=== PATIENT | male | born 1955 | race Caucasian/White ===

== ENCOUNTER → 2016-10-04 | Outpatient (CLI) | payer BC ==
--- NOTE | 2016-10-04 13:11 | RADRPT ---
PROCEDURE: XR pelvis / bilateral hips. CLINICAL INDICATION: Hip pain TECHNIQUE: AP pelvis/AP and lateral views of the right and left hip performed COMPARISON: No prior studies are available for comparison. FINDINGS: There is moderate to severe bilateral hip osteoarthrosis. This is associated with joint space narrow ing, subchondral sclerosis , subchondral cyst formation and osteophytosis. There is normal minerali zation. No fractures or osseous lesions are identified. The soft tissues are unremarkable. IMPRESSION: Moderate to severe bilateral hip osteoarthrosis. RPTAT: HGDB .Cristian Farrell MD, MD Date Time Electronically viewed and signed by .Cristian Farrell MD, on 10/04/2016 13:10 .B/
== END | disposition home or self-care (01) ==
LOC: HKI 10:02
PROVIDERS: ATTEND Orthopaedic Surgery
DX: M25.551 Pain in right hip (principal); M25.552 Pain in left hip; M16.0 Bilateral primary osteoarthritis of hip
CPT/HCPCS: 73523; G0463

== ENCOUNTER → 2016-12-04 | Outpatient (CLI) | payer BC | END | disposition home or self-care (01) | LOC: HKI 09:21 | PROVIDERS: ATTEND Orthopaedic Surgery | DX: M25.551 Pain in right hip (principal); M16.11 Unilateral primary osteoarthritis, right hip | CPT/HCPCS: G0463 ==

== ENCOUNTER 2016-12-12 05:30 | Inpatient (IN) | payer BC ==
[2016-12-08 17:25] VITALS: BMI 37.3
[~2016-12-12] VITALS: Ht 190.5 cm; Wt 142.0 kg
[2016-12-12] VITALS (23 sets, daily range): BP systolic 97–156; BP diastolic 57–86; PULSE 64–86; RESP 11–19; Ht 190.5 cm; Wt 142.0 kg
[2016-12-12] MEDS ORDERED: PAIN COCKTAIL-CEFUROXIME IRR ONE ×7 (06:00)
[2016-12-12] MEDS ORDERED: PREGABALIN 300 MG PO X1 PO ONE (06:00)
[2016-12-12] MEDS ORDERED: oxyCODONE (CR) 10 MG TAB [oxyCONTIN] X1 DOSE PO ONE (06:00)
[2016-12-12] MEDS ORDERED: CEFAZOLIN 2GM/50 ML (PMX) 50 ML X1 BEFORE INCISION IVPB ONE (06:00)
[2016-12-12] MEDS ORDERED: traMADOL 50 MG TAB X 1 DOSE PO ONE (06:00)
[2016-12-12] MEDS ORDERED: BUPIVACAINE LIPOSOME/PF 266 MG/20 ML VIAL INFIL ONE (06:00)
[2016-12-12] MEDS ORDERED: SOD CHLORIDE 0.9% IV ONE (06:00)
[2016-12-12] MEDS ORDERED: TRANEXAMIC ACID IV ONE (06:00)
[2016-12-12] MEDS ORDERED: CELECOXIB 400 MG PO X1 DOSE PO ONE (06:00)
[2016-12-12] MEDS: LACTATED RINGER'S 1,000 ML IV SCH ×5 (06:00→22:11)
[2016-12-12] MEDS ORDERED: GABA400C PO (06:54)
[2016-12-12] MEDS ORDERED: ARIP5TAB7 PO (06:56)
[2016-12-12] MEDS ORDERED: IBUP100T46 PO (06:56)
[2016-12-12] MEDS ORDERED: CEFAZOLIN 1 GM INJ ONE ×2 (07:00→07:18)
[2016-12-12] MEDS ORDERED: LIDOCAINE 2% (SDV) 5 ML INJ ONE (07:00)
[2016-12-12] MEDS ORDERED: ANDROGEL (07:02)
[2016-12-12] MEDS ORDERED: MARIJUANA (07:02)
[2016-12-12] MEDS ORDERED: TRAM50TA2 PO (07:02)
[2016-12-12] MEDS ORDERED: DULO60CA6 PO (07:02)
[2016-12-12] MEDS ORDERED: VIAGRA (07:02)
[2016-12-12] MEDS ORDERED: CLON2TAB22 PO (07:02)
[2016-12-12] MEDS ORDERED: VANCOMYCIN 1 GM INJ ONE (07:03)
[2016-12-12] MEDS ORDERED: POLYMYXIN B 500000 UNIT INJ ONE (07:03)
--- NOTE | 2016-12-12 07:14 | HPN ---
Date/Time of Note Date/Time of Note DATE: 12/12/16 TIME: 07:12 Interval H&P Admission Note Pt. seen H&P reviewed: Systems changes noted below H&P on 12/07/[address] Wale Townsend reviewed. Patient denies any prior history of a DVT and/or PE. He has never been on any anticoagulants. The H&P also states he is undergoing a left hip replacement but it is actually his right hip which is being replaced. This was confirmed with the patient and the consent reflects we will be replacing his right hip today. LYN MICHELLE MD December 12, 2016 07:14
[2016-12-12] MEDS ORDERED: NEOSTIGMINE 3 MG/3 ML SYRINGE ONE (07:18)
[2016-12-12] MEDS ORDERED: PROPOFOL 20 ML ONE (07:18)
[2016-12-12] MEDS ORDERED: FENTAnyl 50 MCG/ML VIAL ONE (07:18)
[2016-12-12] MEDS ORDERED: GLYCOPYRROLATE 0.4 MG INJ ONE (07:18)
[2016-12-12] MEDS ORDERED: MIDAZOLAM 1 MG/ML 2 ML INJ ONE (07:18)
[2016-12-12] MEDS ORDERED: ONDANSETRON 4 MG INJ ONE (07:18)
[2016-12-12] MEDS ORDERED: ROCURONIUM 50 MG INJ ONE (07:18)
[2016-12-12] MEDS ORDERED: DEXAMETHASONE 4 MG/ML 1 ML INJ ONE (07:19)
--- NOTE | 2016-12-12 07:20 | PREOPHP ---
DATE OF ADMISSION: 12/12/2016 Don William is scheduled for surgery with Dr. Heriberto Fitzpatrick. He is to have an anterior left total hip arthroplasty. HISTORY OF PRESENT ILLNESS: Mr. William is a 61-year-old male who has pain in both hips and is cu rrently scheduled for hip replacement on the left side. He has a history of hyperlipidemia, hypogon adism. PAST SURGICAL HISTORY: Appendectomy, tonsillectomy. He has fractured his left ankle, his right wri st and 2 ribs in the past. FAMILY HISTORY: Mr. William has a father who is living and is in his late 80s. PAST MEDICAL HISTORY: Atrial fibrillation, DVT and pulmonary embolus. SOCIAL HISTORY: The patient is a nonsmoker and a light drinker who was born in [place]. ALLERGIES: NO KNOWN ALLERGIES. REVIEW OF SYSTEMS: The patient has sweats which he has had for many years, mostly after eating. Th e patient denies double vision or blurring of vision. He has some diminished hearing. He denies po st nasal drip or nosebleed. The patient some dysphagia after the first bite, but none after the fir st bite. The patient denies neck pain or neck swelling. He denies cough. He does have shortness o f breath with exertion. The patient denies chest pain or chest pressure. The patient reports some mild constipation. The patient has occasional stomach upset. GENITOURINARY: The patient dysuria, hematuria, pyuria. MUSCULOSKELETAL: As noted. Knee pain as well as neck pain. SKIN: The patient has not seen a log check scaler. Does not report skin cancer or skin rashes. NEUROLOGIC: he patient denies numbness, weakness, tingling or gait disturbance. He denies signific ant bleeding diaphysis. PHYSICAL EXAMINATION: GENERAL: The patient is a grossly obese gentleman who is 6 feet 3 inches and weighs 310 pounds. VITAL SIGNS: His BP is 120/80. HEENT: The pupils are equal and reactive to light and accommodation. Extraocular motility are full . Tympanic membranes are clear. Hearing is satisfactory. Examination of the mouth is unremarkable . NECK: Examination reveals no masses, no bruits, no supraclavicular adenopathy. CHEST: Examination reveals a regular rhythm. No gallops or murmurs are appreciated. ABDOMEN: Examination reveals a soft abdomen. Abdomen is obese and is difficult to examine. GENITAL EXAMINATION: Not performed. RECTAL EXAMINATION: Unremarkable. NEUROLOGIC EVALUATION: Cranial nerves II through XII within normal limits. The patient does have an intention tremor and a tremor with exertion. He has good judgement. He has normal proprioception, normal vibratory sense. He is oriented x3. The patient is felt to be a suitable and satisfactory candidate for surgical intervention for his os teoarthritis of his knee with a left hip arthroplasty. DR. SARA CERDA DICTATING PRE-OPERATIVE HISTORY AND PHYSICAL FOR DR. HERIBERTO FITZPATRICK. Dictated By: HERIBERTO FITZPATRICK MD EZ/NTS Conf#: [id number] DID#: [id number]
[2016-12-12] MEDS ORDERED: HEPARIN 1000 UNITS/ML 10 ML INJ ONE (08:15)
[2016-12-12] MEDS ORDERED: BACITRACIN 50000 UNITS INJ IRR ONE (08:19)
[2016-12-12] MEDS ORDERED: MIDAZOLAM 1 MG/ML 2 ML INJ IV PRN (08:30)
[2016-12-12] MEDS ORDERED: HYDROmorphONE (0.2 MG/ML) 10ML SYG IV PRN ×3 (08:30)
[2016-12-12] MEDS ORDERED: DIPHENHYDRAMINE 50 MG INJ IV PRN (08:30)
[2016-12-12] MEDS ORDERED: LABETALOL HCL 20MG INJ IV PRN (08:30)
[2016-12-12] MEDS ORDERED: FENTAnyl 50 MCG/ML VIAL IV PRN ×3 (08:30)
[2016-12-12] MEDS ORDERED: EPHEDrine SULFATE 50 MG/5 ML SYG IV PRN (08:30)
[2016-12-12] MEDS ORDERED: ONDANSETRON 4 MG INJ IV PRN ×2 (08:30→10:30)
[2016-12-12] MEDS ORDERED: TRIMETHOBENZAMIDE 100 MG/ML VIAL IM PRN (08:30)
[2016-12-12] MEDS ORDERED: MEPERIDINE 25 MG INJ IV PRN (08:30)
[2016-12-12] MEDS ORDERED: hydrALAzine 20 MG INJ IV PRN (08:30)
[2016-12-12] MEDS: SOD CHLORIDE 0.9% IVPB ONE ×3 (09:26)
[2016-12-12] MEDS: TRANEXAMIC ACID IVPB ONE ×3 (09:26)
--- NOTE | 2016-12-12 10:09 | RADRPT ---
PROCEDURE: X-ray fluoroscopy guidance CLINICAL INDICATION: RT HIP REPLACEMENT TECHNIQUE: Fluoroscopic guidance was utilized for intraoperative procedure. COMPARISON: None. FINDINGS: Fluoroscopic guidance was utilized for intraoperative procedure. 8.9 minutes of fluoroscopy time wa s utilized for the procedure. 19 x-ray images were obtained during the procedure. A right hip prosthesis is noted in near anatomic alignment. IMPRESSION: X-ray fluoroscopic guidance utilized for intraoperative procedure. Right hip prosthesis in near anatomic alignment. Please see procedure note details. RPTAT: EE Physician Deena Date Time Electronically viewed and signed by Physician Deena on 12/12/2016 10:09 RA/
--- NOTE | 2016-12-12 10:28 | PN ---
Date/Time of Note Date/Time of Note DATE: 12/12/16 TIME: 10:26 Assessment/Plan Lines/Catheters IV Catheter Type (from Nrsg): Peripheral IV Assessment/Plan Assessment/Plan Stable in PACU, s/p right anterior KATERINE -continue Ancef 3g until drain removed -pain meds as needed -ASA/SCDs for DVT prophylaxis -OOB with PT -check AM labs -monitor drain -d/c chavez in AM XR of the right hip is pending at this time Subjective 24 Hr Interval Summary Stable in PACU. Denies pain. Moving all extremities. Exam/Review of Systems Vital Signs Vitals Vital Signs Date Time Temp Pulse Resp B/P Pulse Ox O2 Delivery O2 Flow Rate FiO2 12/12/16 07:17 98.0 64 18 139/84 98 Intake and Output 12/11/16 12/11/16 12/12/16 15:00 23:00 07:00 Intake Total 113.54 ml Balance 113.54 ml Exam Free Text/Dictation Hemovac: minimal Dressing dry Incision clean, dry, and intact without redness or drainage 5/5 Quadriceps, Tibialis Anterior, EHL, Gastroc, Soleus, Peroneals Normal sensation Palpable DT/PT, CR <2 sec No distal edema HALINA NGUYỄN PA-C December 12, 2016 10:28
[2016-12-12] MEDS ORDERED: ASPIRIN (EC) 325 MG TAB PO ONE (10:30)
[2016-12-12] MEDS ORDERED: MAGNESIUM HYDROXIDE 30ML CUP PO PRN (10:30)
[2016-12-12] MEDS ORDERED: BISACODYL 10 MG SUPP PR PRN (10:30)
[2016-12-12] MEDS ORDERED: DIPHENHYDRAMINE 25 MG CAP PO PRN (10:30)
[2016-12-12] MEDS ORDERED: HYDROCODONE/APAP (5/325) TAB PO PRN (10:30)
[2016-12-12] MEDS ORDERED: HYDROmorphONE 1 MG/ML SYG IV PRN (10:30)
[2016-12-12] MEDS ORDERED: NACL 0.9% 3 ML SYG IV SCH (10:30)
[2016-12-12] MEDS ORDERED: NA PHOSPHATE/BIPHOS 133 ML ENEMA PR PRN (10:30)
--- NOTE | 2016-12-12 10:30 | OPR ---
Date/Time of Note Date/Time of Note DATE: 12/12/16 TIME: 10:29 Operative Report Free Text/Dictation Dictation # [id number] Procedure Date: December 12, 2016 Preoperative Diagnosis Right Hip OA Postoperative Diagnosis Same Operation Performed Right Anterior KATERINE Surgeon: LYN MICHELLE MD under water assistant: HALINA NGUYỄN PA-C Anesthesia: general, spinal Anesthesiologist: Juan Cooney M.D. Estimated Blood Loss: other Specimens Femoral Head Tubes/Drains Hemovac x 1 Complications: None Pt Condition Post Procedure: stable Disposition: PACU LYN MICHELLE MD December 12, 2016 10:30
[2016-12-12 10:48] LABS: HEMATOCRIT 40.8 % (42.0-52.0); HEMOGLOBIN 13.5 g/dl (14.0-18.0)
--- NOTE | 2016-12-12 10:52 | OPR ---
DATE OF OPERATION: 12/12/2016 PREOPERATIVE DIAGNOSIS: Right hip osteoarthritis. POSTOPERATIVE DIAGNOSIS: Right hip osteoarthritis. OPERATION PERFORMED: Right anterior total hip arthroplasty. SURGEON: Lyn Fitzpatrick MD BAG HANGER: SOPHIA Aldana COMPONENTS USED: DePuy size 56 mm Gription [place] cup, 56/36 neutral AltrX polyethylene liner, si ze 7 standard Actis stem, 36+1.5 ceramic head. ANESTHESIA: Spinal plus general endotracheal intubation plus periarticular injection. ANESTHESIOLOGIST: Dr. Cooney ESTIMATED BLOOD LOSS: 400 mL. INTRAVENOUS FLUIDS: Three liters of crystalloid. SPECIMENS: Femoral head. DRAINS: Hemovac x1. COMPLICATIONS: None. DISPOSITION: Patient tolerated the procedure well and was taken to the recovery room in stable [facility] ition. INDICATIONS: The patient is a 61-year-old gentleman who has had progressive worsening pain in the r ight hip with radiographic evidence of severe osteoarthritis. He has failed nonsurgical means of tr eatment to control his pain including activity modifications, pain medications and ambulatory assist devices. Despite these measures, he has had worsening pain and I felt he would benefit from a tota l hip arthroplasty through an anterior approach. The risks, benefits, and alternatives of the procedure were explained in detail to the patient. I e xplained the risks of the surgery to include, but not be limited to: bleeding and possible need for blood transfusion; infection; pain; stiffness; neurovascular injury with possible numbness, weakness , and/or paralysis anywhere from the hip down to the toes; fracture; instability; dislocation; leg l ength inequality; wear and/or loosening of the prosthesis and possible need for future revision; blo od clots; pulmonary embolism; and anesthetic complications such as heart attack, stroke, GI bleed, p neumonia, and/or . Ample time was allowed for the patient to ask questions, all of which were addressed and answered. The patient understood the risks involved and wished to proceed. Informed c onsent was signed prior to the procedure. PROCEDURE: The patient's right hip was initialed with a marking pen in the preoperative area to iden tify the correct operative site. The patient was brought to the operating room and transferred from the [facility] to the [facility] where a spinal anesthetic was administered. The patient was then anesthetized and intubated. A Diaz catheter was placed. Both feet were placed into well-padd ed boots which were then placed into the leg holders of the traction booms. A timeout was performed to confirm that the right side was the correct operative site. The patient was given 2 g of intrav enous Ancef within one hour prior to the procedure. The operative hip was prepped and draped in the usual sterile fashion. A 10 cm oblique incision was made over the anterior aspect of the hip and carried down through subcu taneous tissue and fat with sharp dissection. The tensor fascia roberta was incised along the length o f the wound. The tensor fascia muscle was retracted laterally and the sartorius medially. The anter ior circumflex vessels were identified and tied off with 2-0 silk suture and coagulated with the [email or web address] herbert Link bar waiter/waitress. The rectus femoris was elevated off the anterior capsule and an anterior capsu lectomy performed. A femoral neck osteotomy was made and the head removed from the acetabulum. The acetabulum was denuded of cartilage circumferentially, as was the femoral head. Retractors were pl aced around the acetabulum. The remnants of the labrum and ligamentum teres were excised. I reamed the acetabulum to the medial wall and then went into an anatomic position and increased the reamer size in 2 mm increments until I got a good bite and was down to bleeding subchondral bone. The [place] cup was opened and impacted into the acetabulum and sat flush circumferentially, gettin g a good bite. C-arm imaging showed it had about 40 to 45 degrees of abduction and 20 degrees of ant eversion. The real liner was opened and impacted into the acetabulum and sat flush circumferentiall y. Attention was turned towards the femur. The operative leg was carefully lowered to the floor with the leg adducted. The foot was then exter sarahy rotated to approximately 110 degrees. A posteromedial release was performed to optimize expos ure. The femoral hook was placed underneath the proximal femur and the hydraulic lift was then used to elevate the femur up out of the wound. The angelito cutter osteotome was used to remove the remai williams overhanging greater trochanter. The femur was then broached, going up in one size increments u ntil it sat flush with the neck cut and a stable fit was achieved. The trial neck and head were ass embled and reduced into the acetabulum. Fluoroscopic imaging showed the components to be in good pos ition and the leg lengths and offsets to be equal. At this point, the trial was dislocated and the trial broach removed. The canal was irrigated and d ried. The real stem was opened and impacted into the femur. The trunnion was irrigated and dried, a nd the real femoral head was impacted onto the trunnion, and reduced into the acetabulum. The soft tissues were infiltrated with a mixture of 150 mg of 0.5% Bupivacaine, 8 mg of Duramorph, 3 00 mcg of epinephrine, 30 mg of Toradol, 100 mcg of clonidine, 750 mg of cefuroxime and 86 mL of nor mal saline, followed by an injection of 266 mg of liposomal Bupivacaine. At this point the hip was irrigated with a mixture of betadine/saline and then antibiotic saline with pulsatile lavage. A Hem ovac drain was placed in the deep portion of the wound and brought out the anterolateral thigh. Ther e was good hemostasis. The tensor fascia roberta was repaired with a running #1 Vicryl. The deep fat layer was irrigated and closed with 2-0 Stratafix and the subcutaneous layer closed with 3-0 Vicryl and the skin was closed with ihsan and then sealed with Dermabond. The drain was secured with 3-0 nylon. The sponge and needle counts were correct at the end of the case. The wound was covered with an occ lusive dressing. The patient was awakened, extubated, and taken to the recovery room in stable cond ition. Dictated By: LYN SINGH/MATT Conf#: [id number] DID#: [id number]
[2016-12-12 11:04] LABS: CALCIUM 8.4 mg/dl (8.4-10.2); CREATININE 0.86 mg/dl (0.61-1.24); POTASSIUM 4.9 mmol/L (3.5-5.1)
--- NOTE | 2016-12-12 11:06 | RADRPT ---
PROCEDURE: Pelvis x-ray CLINICAL INDICATION: Pain TECHNIQUE: Single AP view of the pelvis performed. COMPARISON: None FINDINGS: Normal mineralization, architecture and alignment. No fracture or osseous lesion identified. There are moderate to severe degenerative changes of the left hip joint including joint space narrow ing and small osteophytes. There is a total right hip prosthesis in near anatomic alignment without evidence of hardware loosen ing. Likely postoperative changes are noted including a surgical drain and surrounding subcutaneous emphy sema. A Diaz catheter balloon is noted in the bladder. RPTAT: AA IMPRESSION: Right hip prosthesis in near anatomic alignment is likely postoperative changes, as above. Moderate to severe degenerative changes of the left hip joint. Physician Deena Date Time Electronically viewed and signed by Physician Deena on 12/12/2016 11:05 /
[2016-12-12] MEDS ORDERED: CEFAZOLIN 1 GM/50 ML (PMX) 50 ML IVPB SCH (12:00)
[2016-12-12] MEDS ORDERED: CEFAZOLIN 2 GM/50 ML (PMX) 50 ML IVPB SCH (12:00)
[2016-12-12] MEDS: CEFAZOLIN 3 GM in SOD CHLORIDE 0.9% 100 ML IVPB SCH ×2 (12:00→18:28)
[2016-12-12] MEDS ORDERED: BACITRACIN 50000 UNITS INJ ONE (12:04)
[2016-12-12] MEDS: traMADol 50 MG TAB PO SCH ×2 (12:41→17:06)
[2016-12-12] MEDS ORDERED: SOD CHLORIDE 0.9% IVPB ONE ×2 (13:30→16:30)
[2016-12-12] MEDS ORDERED: TRANEXAMIC ACID IVPB ONE ×2 (13:30→16:30)
--- NOTE | 2016-12-12 13:41 | CONS ---
DATE OF ADMISSION: 12/12/2016 DATE OF CONSULTATION: 12/12/2016 TYPE OF CONSULTATION: Postoperative medical consultation Thank you very much for allowing me to evaluate this 61-year-old male who just underwent a right tot al hip arthroplasty. HISTORICAL EVENTS: As you well know, this patient has had progressive disabling pain involving his right hip, and elected to proceed with surgical intervention. On the orthopedic floor postoperative ly, he is comfortable without cough, wheezing, shortness of breath, nausea, vomiting, abdominal or c hest pain. PAST MEDICAL HISTORY: Anxiety/depression and overweight status. MEDICATIONS: Dose to be determined. 1. Cymbalta. 2. ____. 3. Gabapentin. 4. Clonazepam. 5. Melatonin. 6. Mobic. 7. Tramadol. 8. Celebrex. 9. Aspirin. OTHER PAST MEDICAL HISTORY: Appendectomy. FAMILY HISTORY: Noncontributory. SOCIAL HISTORY: Does not smoke, socially drinks. . PHYSICAL EXAMINATION: GENERAL: [place] male in no acute distress. VITAL SIGNS: BP 122/80, pulse 70, respirations are 20, he was afebrile. EYES: Extraocular muscles were full. NOSE, MOUTH, AND THROAT: Normal. NECK: Supple. There was no jugular venous distention, thyroid enlargement or adenopathy. LUNGS: Clear. HEART: Rhythm regular, no murmur. No third or fourth sound. ABDOMEN: Nontender. Liver and spleen were not palpable. No masses or tenderness were noted. EXTREMITIES: No edema, no calf tenderness. IMPRESSION: 1. Stable postoperative right hip replacement. 2. History of depression and anxiety. Would certainly continue to receive Cymbalta and Abilify as well as Clonazepam. 3. Will evaluate daily for signs and symptoms of thromboembolic disease despite an appropriate deep venous thrombosis prophylaxis. Dictated By: MÓNICA WILKERSON/MATT Conf#: [id number] DID#: [id number]
[2016-12-12] MEDS: PANTOPRAZOLE (EC) 40 MG TAB PO SCH (17:06)
[2016-12-12] MEDS ORDERED: EXPAREL NOTE (BUPIVICAINE LIPOSOMAL) XX SCH (18:00)
[2016-12-12] MEDS: HYDROCODONE/APAP (5/325) TAB PO PRN (20:05)
[2016-12-12] MEDS: GABAPENTIN 400 MG CAP PO SCH (21:44)
[2016-12-12] MEDS: DOCUSATE SODIUM 100 MG CAP PO SCH (21:44)
[2016-12-13 00:05] VITALS: BP 136/64; PULSE 76
[2016-12-13] MEDS: traMADol 50 MG TAB PO SCH ×4 (00:36→17:53)
[2016-12-13] MEDS: CEFAZOLIN 3 GM in SOD CHLORIDE 0.9% 100 ML IVPB SCH (00:36)
[2016-12-13] MEDS: LACTATED RINGER'S 1,000 ML IV SCH ×5 (02:00→21:16)
[2016-12-13 05:00] LABS: HEMATOCRIT 26.8 % (42.0-52.0); HEMOGLOBIN 8.9 g/dl (14.0-18.0)
[2016-12-13 05:12] LABS: ADD UMIC NO; URINE BILIRUBIN (Dip) NEGATIVE (NEGATIVE); URINE BLOOD (Dip) NEGATIVE (NEGATIVE); URINE COLOR LT. YELLOW (YELLOW); URINE GLUCOSE (Dip) NEGATIVE (NEGATIVE); URINE KETONES (Dip) NEGATIVE (NEGATIVE); URINE LEUKOCYTE ESTERASE (Dip) NEGATIVE (NEGATIVE); URINE NITRITE (Dip) NEGATIVE (NEGATIVE); URINE TOTAL PROTEIN (Dip) NEGATIVE (NEGATIVE); URINE UROBILINOGEN (Dip) 0.2 E.U./dL (0.1-1.0)
[2016-12-13 05:44] LABS: CALCIUM 8.4 mg/dl (8.4-10.2); CREATININE 0.82 mg/dl (0.61-1.24)
[2016-12-13] MEDS: PANTOPRAZOLE (EC) 40 MG TAB PO SCH ×2 (06:27→17:53)
[2016-12-13] MEDS: HYDROCODONE/APAP (5/325) TAB PO PRN ×2 (07:39→15:44)
[2016-12-13 08:32] VITALS: BP 140/66; RESP 18
--- NOTE | 2016-12-13 08:41 | PN ---
Date/Time of Note Date/Time of Note DATE: 12/13/16 TIME: 08:38 Assessment/Plan Lines/Catheters IV Catheter Type (from Nrsg): Peripheral IV Diaz in Place (from Nrsg): Yes Assessment/Plan Assessment/Plan Stable POD #1, s/p right anterior KATERINE -d/c Ancef -pain meds as needed -ASA/SCDs for DVT prophylaxis -OOB with PT -H&H low, will monitor closely. Hold off on transfusion for now -check AM labs -drain removed -d/c planning. Will plan to go home upon discharge Subjective 24 Hr Interval Summary No acute overnight events. Denies significant pain. Did not start PT yesterday. Significant drop in H&H, but will hold off on transfusion for now. VSS, afebrile. Will plan to go home upon discharge. Exam/Review of Systems Vital Signs Vitals Vital Signs Date Time Temp Pulse Resp B/P Pulse Ox O2 Delivery O2 Flow Rate FiO2 12/13/16 08:32 98.7 76 18 140/66 99 12/13/16 00:05 Nasal Cannula 12/12/16 20:35 2.0 Intake and Output 12/12/16 12/12/16 12/13/16 15:00 23:00 07:00 Intake Total 3213.54 ml 1600 ml 1580 ml Output Total 1120 ml 600 ml 2040 ml Balance 2093.54 ml 1000 ml -460 ml Exam Free Text/Dictation Hemovac: 160cc Dressing dry Incision clean, dry, and intact without redness or drainage 11/17 Quadriceps, Tibialis Anterior, EHL, Gastroc, Soleus, Peroneals Normal sensation Palpable DT/PT, CR <2 sec No distal edema Results Result Diagram: 12/13/16 0428 12/13/16 0428 HALINA NGUYỄN PA-C December 13, 2016 08:41
--- NOTE | 2016-12-13 08:49 | CONS ---
Date/Time of Note Date/Time of Note DATE: 12/13/16 TIME: 08:48 Assessment/Plan Assessment/Plan Additional Assessment/Plan 1. Stable post op right hip replacement. 2. Anemia noted, no need for transfusion. 3. Depression, stable Consultation Date/Type/Reason Admit Date/Time December 12, 2016 at 05:30 Initial Consult Date Detailed Summary Respiratory: No pleuritic pain, No shortness of breath Cardiovascular: No chest pain Gastrointestinal: no complaints Genitourinary: other (chavez just removed) Musculoskeletal: bone/joint pain (mild right hip pain) Exam/Review of Systems Vital Signs Vitals Vital Signs Date Time Temp Pulse Resp B/P Pulse Ox O2 Delivery O2 Flow Rate FiO2 12/13/16 08:32 98.7 76 18 140/66 99 12/13/16 00:05 Nasal Cannula 12/12/16 20:35 2.0 Intake and Output 12/12/16 12/12/16 12/13/16 15:00 23:00 07:00 Intake Total 3213.54 ml 1600 ml 1580 ml Output Total 1120 ml 600 ml 2040 ml Balance 2093.54 ml 1000 ml -460 ml Exam Neck: No jvd Respiratory: clear to auscultation Cardiovascular: regular rate and rhythm Gastrointestinal: soft Extremities: No edema (and no calf tend) Results Result Diagram: 12/13/16 0428 12/13/16 0428 Results 24 hrs Laboratory Tests Test 12/12/16 10:35 12/13/16 04:28 12/13/16 04:30 Hemoglobin 13.5 L 8.9 #L Hematocrit 40.8 L 26.8 #L Sodium Level 138 141 Potassium Level 4.9 4.0 Chloride Level 108 112 H Carbon Dioxide Level 27 31 Anion Gap 8 2 L Blood Urea Nitrogen 23 H 19 Creatinine 0.86 0.82 Glucose Level 106 117 Calcium Level 8.4 8.4 Urine Color LT. YELLOW Urine Clarity CLEAR Urine pH 5.5 Urine Specific [place] >=1.030 H Urine Ketones NEGATIVE Urine Nitrite NEGATIVE Urine Bilirubin NEGATIVE Urine Urobilinogen 0.2 E.U./dL Urine Leukocyte Esterase NEGATIVE Urine Hemoglobin NEGATIVE Urine Glucose NEGATIVE Urine Total Protein NEGATIVE Medications Medications Current Medications Lactated Ringer's (Lr) 1,000 ml @ 100 mls/hr Q10H IV ; Start 12/12/16 at 06:00 Miscellaneous Information 1 ea NOTE XX ; Start 12/12/16 at 18:00; Stop 12/16/16 at 17:59 Aripiprazole (Abilify) 5 mg DAILY PO ; Start 12/13/16 at 09:00 Duloxetine HCl (Cymbalta) 60 mg DAILY PO ; Start 12/13/16 at 09:00 Gabapentin 800 mg 800 mg BID PO Last administered on 12/12/16 21:44; Admin Dose 800 MG; Start 12/12/16 at 21:00 Lactated Ringer's (Lr) 1,000 ml @ 125 mls/hr Q8H IV Last administered on 06:28; Admin Dose 125 MLS/HR; Start 12/12/16 at 10:21 Tramadol HCl (Ultram) 50 mg Q6 PO Last administered on 12/13/16 06:27; Admin Dose 50 MG; Start 12/12/16 at 12:00; Stop 12/15/16 at 11:59 Acetaminophen/ Hydrocodone Bitart ([place] (5/325)) 1 tab Q4H PRN PO PAIN LEVEL 1 -3; Start 12/12/16 at 10:30 Acetaminophen/ Hydrocodone Bitart ([place] (5/325)) 2 tab Q4H PRN PO PAIN LEVEL 4 -7 Last administered on 12/13/16 07:39; Admin Dose 2 TAB; Start 12/12/16 at 10: 30 Hydromorphone HCl (Dilaudid) 1 mg Q3H PRN IV PAIN LEVEL 8-10 Last administered on 12/12/16 13:40; Admin Dose 1 MG; Start 12/12/16 at 10:30 Ondansetron HCl (Zofran Inj) 4 mg Q6H PRN IV NAUSEA AND/OR VOMITING; Start at 10:30 Bisacodyl (Dulcolax Supp) 10 mg Q12H PRN [place] CONSTIPATION; Start 12/12/16 at 10: 30 Magnesium Hydroxide (Milk Of Mag) 30 ml BID PRN PO CONSTIPATION; Start at 10:30 Sodium Biphosphate/ Sodium Phosphate (Fleet Enema) 133 ml DAILY PRN [place] CONSTIPATION; Start 12/12/16 at 10:30 Docusate Sodium (Colace) 100 mg BID PO Last administered on 12/12/16 21:44; Admin Dose 100 MG; Start 12/12/16 at 21:00 Diphenhydramine HCl (Benadryl) 25 mg Q6H PRN PO PRURITUS; Start 12/12/16 at 10: 30 Aspirin (Ecotrin) 325 mg BID PO ; Start 12/13/16 at 09:00 Pantoprazole (Protonix Tab) 40 mg BID@06,18 PO Last administered on 12/13/16 06:27; Admin Dose 40 MG; Start 12/12/16 at 18:00 Clonazepam (Klonopin) 1 mg Q8H PRN PO ANXIETY; Start 12/12/16 at 13:30 MÓNICA PALACIOS MD December 13, 2016 08:49
[2016-12-13] MEDS ORDERED: DULOXETINE 30 MG CAP DR PO SCH ×2 (09:00→21:00)
[2016-12-13] MEDS ORDERED: ARIPIPRAZOLE 5 MG TAB PO SCH ×2 (09:00→21:00)
[2016-12-13] MEDS: ASPIRIN (EC) 325 MG TAB PO SCH ×2 (09:18→21:15)
[2016-12-13] MEDS: DOCUSATE SODIUM 100 MG CAP PO SCH ×2 (09:18→21:15)
[2016-12-13] MEDS: GABAPENTIN 400 MG CAP PO SCH ×2 (09:18→21:15)
[2016-12-13] MEDS: clonAZEPAM 0.5 MG TAB PO PRN ×2 (09:19→21:21)
[2016-12-13 19:57] VITALS: BP 133/71; RESP 20
[2016-12-14] MEDS: traMADol 50 MG TAB PO SCH ×3 (00:16→13:20)
[2016-12-14] MEDS: LACTATED RINGER'S 1,000 ML IV SCH ×3 (02:21→10:21)
[2016-12-14 05:16] LABS: HEMOGLOBIN 8.4 g/dl (14.0-18.0)
[2016-12-14 05:43] LABS: CALCIUM 8.5 mg/dl (8.4-10.2); CREATININE 0.74 mg/dl (0.61-1.24); POTASSIUM 3.9 mmol/L (3.5-5.1)
[2016-12-14 06:00] LABS: IRON 16 ug/dl (35-150)
[2016-12-14] MEDS: PANTOPRAZOLE (EC) 40 MG TAB PO SCH (06:01)
[2016-12-14 06:10] LABS: TOTAL IRON BINDING CAPACITY 250 ug/dl (241-421)
--- NOTE | 2016-12-14 07:31 | PDOCDIS ---
Discharge Instructions DIAGNOSIS Discharge Diagnosis: s/p right anterior KATERINE CONDITION Patient Condition: Good HOME CARE INSTRUCTIONS: Diet Instructions: Regular ACTIVITY: Activity Restrictions: Slowly Increase Activity Rest between Activity Avoid heavy lifting Do not operate Machinery Do not operate Power Tool Avoid Heavy Housework Keep Limb Elevated Bathing Restrictions: Shower FOLLOW UP/APPOINTMENTS Appointments follow up in the office on 12/22/16 OTHER ORDERS: Other Orders: S/P Anterior KATERINE Physical Therapy: Three times per week at home x 2 weeks Daily in Rehab/SNF WB STATUS: WBAT Strengthening exercises for both upper and un-operated lower extremities. 1. Gait training with front wheeled walker 2. Wide base gait, no pivot turns. 3. Abductor strengthening. 4. Quadriceps and hamstring strengthening. 5. May switch to cane in contra lateral hand 6 weeks after surgery. 6. Physical Therapy can open case if nursing is not available. 7. Ice Packs while at rest to surgical wound for 20 minutes, 3 times/day. 8. Patient requires mobile SCDs to reduce risk of developing DVT following KATERINE. Patient will use the mobile SCDs for 30 days postoperatively. Hip Precautions: No posterior hip precautions. Bathing assistance by home health aide twice weekly if Medicare patient. Occupational Therapy: Evaluation for assistive devices and ADL training. Wound Care: Keep incision dry & covered with Tegaderm until first visit with Dr. Fitzpatrick Anticoagulation Orders: Enteric Coated Aspirin 325 mg po bid x 6 weeks from date of surgery Follow-up:Call for an appointment with Dr. Fitzpatrick in 1 week after discharged from hospital at DME Orders: TIANNA, 3-in-1 Commode, Mobile SCDs HALINA NGUYỄN PA-C Dec 14, 2016 07:31
[2016-12-14] MEDS ORDERED: PANT40TA4 PO (07:32)
[2016-12-14] MEDS ORDERED: ASPI325T32 PO (07:32)
[2016-12-14] MEDS ORDERED: TRAM50TA2 PO (07:32)
[2016-12-14] MEDS ORDERED: HYDR-3498 PO (07:32)
[2016-12-14] MEDS: HYDROCODONE/APAP (5/325) TAB PO PRN (07:34)
[2016-12-14 08:38] VITALS: BP 134/74; RESP 18
[2016-12-14] MEDS: ASPIRIN (EC) 325 MG TAB PO SCH (09:00)
[2016-12-14] MEDS: GABAPENTIN 400 MG CAP PO SCH (09:00)
[2016-12-14] MEDS: DOCUSATE SODIUM 100 MG CAP PO SCH (09:01)
--- NOTE | 2016-12-14 11:47 | RADRPT ---
PROCEDURE: US DVT. CLINICAL INDICATION: Rule out deep venous thrombosis in the right lower extremity. TECHNIQUE: Multiple longitudinal and transverse images of the right lower extremity veins were obt ained with day scale and color Doppler imaging. 2D grayscale measurements with compression, color Doppler flow, and augmentation was performed. The calf veins were interrogated as well. COMPARISON: No prior studies are available for comparison. FINDINGS: The right common femoral, superficial femoral and popliteal veins are normally compressible througho ut. Color flow demonstrates normal filling of the vessel. Normal waveforms are visualized and ther e is normal response to augmentation. IMPRESSION: 1. No evidence of a deep vein thrombosis involving the right lower extremity. RPTAT: AACC Physician Luis Date Time Electronically viewed and signed by Physician Luis on 12/14/2016 11:46 /
--- NOTE | 2016-12-14 12:19 | CONS ---
Date/Time of Note Date/Time of Note DATE: 12/14/16 TIME: 12:17 Assessment/Plan Assessment/Plan Additional Assessment/Plan 1. Doing well post op right hip replacement 2. Anemia, noted asx, iron def, po iron started and will need to cont post dc and repeat CBC needed next week Consultation Date/Type/Reason Admit Date/Time December 12, 2016 at 05:30 Detailed Summary Respiratory: No shortness of breath Cardiovascular: No chest pain Gastrointestinal: no complaints Genitourinary: no complaints Musculoskeletal: bone/joint pain (mild right hip pain) Exam/Review of Systems Vital Signs Vitals Vital Signs Date Time Temp Pulse Resp B/P Pulse Ox O2 Delivery O2 Flow Rate FiO2 12/14/16 08:38 98.0 90 18 134/74 93 12/13/16 00:05 Nasal Cannula 12/12/16 20:35 2.0 Intake and Output 12/13/16 12/13/16 12/14/16 15:00 23:00 07:00 Intake Total 600 ml 1200 ml 1200 ml Output Total 400 ml 1300 ml Balance 600 ml 800 ml -100 ml Exam Neck: No jvd Respiratory: clear to auscultation Cardiovascular: regular rate and rhythm Gastrointestinal: soft Extremities: No edema (and calf tend, right thigh is swollen) Results Result Diagram: 12/14/16 0420 12/14/16 0420 Results 24 hrs Laboratory Tests Test 12/14/16 04:20 Hemoglobin 8.4 L Hematocrit 25.0 L Sodium Level 141 Potassium Level 3.9 Chloride Level 110 Carbon Dioxide Level 32 H Anion Gap 3 L Blood Urea Nitrogen 13 Creatinine 0.74 Glucose Level 114 Calcium Level 8.5 Iron Level 16 L Total Iron Binding Capacity 250 Percent Iron Saturation 6 L Ferritin 107.0 Medications Medications Current Medications Lactated Ringer's (Lr) 1,000 ml @ 100 mls/hr Q10H IV ; Start 12/12/16 at 06:00 Miscellaneous Information 1 ea NOTE XX ; Start 12/12/16 at 18:00; Stop 12/16/16 at 17:59 Gabapentin 800 mg 800 mg BID PO Last administered on 12/14/16 09:00; Admin Dose 800 MG; Start 12/12/16 at 21:00 Lactated Ringer's (Lr) 1,000 ml @ 125 mls/hr Q8H IV Last administered on 06:28; Admin Dose 125 MLS/HR; Start 12/12/16 at 10:21 Tramadol HCl (Ultram) 50 mg Q6 PO Last administered on 12/14/16 06:01; Admin Dose 50 MG; Start 12/12/16 at 12:00; Stop 12/15/16 at 11:59 Acetaminophen/ Hydrocodone Bitart ([place] (5/325)) 1 tab Q4H PRN PO PAIN LEVEL 1 -3; Start 12/12/16 at 10:30 Acetaminophen/ Hydrocodone Bitart ([place] (5/325)) 2 tab Q4H PRN PO PAIN LEVEL 4 -7 Last administered on 12/14/16 07:34; Admin Dose 2 TAB; Start 12/12/16 at 10: 30 Hydromorphone HCl (Dilaudid) 1 mg Q3H PRN IV PAIN LEVEL 8-10 Last administered on 12/12/16 13:40; Admin Dose 1 MG; Start 12/12/16 at 10:30 Ondansetron HCl (Zofran Inj) 4 mg Q6H PRN IV NAUSEA AND/OR VOMITING; Start at 10:30 Bisacodyl (Dulcolax Supp) 10 mg Q12H PRN MD CONSTIPATION; Start 12/12/16 at 10: 30 Magnesium Hydroxide (Milk Of Mag) 30 ml BID PRN PO CONSTIPATION; Start at 10:30 Sodium Biphosphate/ Sodium Phosphate (Fleet Enema) 133 ml DAILY PRN MD CONSTIPATION; Start 12/12/16 at 10:30 Docusate Sodium (Colace) 100 mg BID PO Last administered on 12/14/16 09:01; Admin Dose 100 MG; Start 12/12/16 at 21:00 Diphenhydramine HCl (Benadryl) 25 mg Q6H PRN PO PRURITUS; Start 12/12/16 at 10: 30 Aspirin (Ecotrin) 325 mg BID PO Last administered on 12/14/16 09:00; Admin Dose 325 MG; Start 12/13/16 at 09:00 Pantoprazole (Protonix Tab) 40 mg BID@18 PO Last administered on 12/14/16 06 :01; Admin Dose 40 MG; Start 12/12/16 at 18:00 Clonazepam (Klonopin) 1 mg Q8H PRN PO ANXIETY Last administered on 12/13/16 21 :21; Admin Dose 1 MG; Start 12/12/16 at 13:30 Aripiprazole (Abilify) 5 mg HS PO Last administered on 12/13/16 21:15; Admin Dose 5 MG; Start 12/13/16 at 21:00 Duloxetine HCl (Cymbalta) 60 mg HS PO Last administered on 12/13/16 21:15; Admin Dose 60 MG; Start 12/13/16 at 21:00 MÓNICA PALACIOS MD Dec 14, 2016 12:19
--- NOTE | 2016-12-14 12:43 | PN ---
Date/Time of Note Date/Time of Note DATE: 12/14/16 TIME: 12:42 Assessment/Plan Lines/Catheters IV Catheter Type (from Nrsg): Saline Lock Diaz in Place (from Nrsg): No Assessment/Plan Assessment/Plan Stable POD #2, s/p right anterior KATERINE -pain meds as needed -ASA/SCDs -OOB with PT -H&H low but will hold off on transfusion. Discussed taking iron supplement at home -dressing changed -d/c home today -follow up in the office on 1 week Subjective 24 Hr Interval Summary No acute overnight events. Denies significant pain. H&H low but he would like to hold off on transfusion. VSS, afebrile. Will plan for discharge home today. Exam/Review of Systems Vital Signs Vitals Vital Signs Date Time Temp Pulse Resp B/P Pulse Ox O2 Delivery O2 Flow Rate FiO2 12/14/16 08:38 98.0 90 18 134/74 93 12/13/16 00:05 Nasal Cannula 12/12/16 20:35 2.0 Intake and Output 12/13/16 12/13/16 12/14/16 15:00 23:00 07:00 Intake Total 600 ml 1200 ml 1200 ml Output Total 400 ml 1300 ml Balance 600 ml 800 ml -100 ml Exam Free Text/Dictation Dressing dry Incision clean, dry, and intact without redness or drainage 5/5 Quadriceps, Tibialis Anterior, EHL, Gastroc, Soleus, Peroneals Normal sensation Palpable DT/PT, CR <2 sec No distal edema Results Result Diagram: 12/14/1641912/14/16419 HALINA NGUYỄN PA-C Dec 14, 2016 12:43
[2016-12-14] MEDS ORDERED: FERROUS SULFATE (SR) 142 MG TAB PO SCH (13:30)
--- NOTE | 2016-12-14 14:53 | DS ---
DATE OF ADMISSION: 12/12/2016 DATE OF DISCHARGE: 12/14/2016 CONDITION ON DISCHARGE: Stable. ADMITTING DIAGNOSIS: Right hip osteoarthritis. DISCHARGE DIAGNOSIS: Status post right anterior total hip arthroplasty. PROCEDURE PERFORMED: Right anterior total hip arthroplasty. HOSPITAL COURSE: This is a 61-year-old male who was seen in the clinic complaining of worsening right hip pain. X-rays were obtained and demonstrated advanced osteoarthritis of the right hip and it was thought he would benefit from a right anterior total hip arthroplasty. On 12/12/2016, the patient was admitted and taken to the operating room where he underwent a right anterior total hip arthroplasty. There were no intraoperative complications. The patient tolerated the procedure well. He was taken to the recovery room in stable condition. Pain was well controlled with oral pain medication. He was started on aspirin and SCDs for DVT prophylaxis. He did develop some postoperative anemia, but his H and H did stabilize. He remained neurovascularly intact throughout his hospital course. He began physical therapy on postoperative day 1 and continued to make good progress. Ultimately , he was stable for discharge home on postoperative day 2. Prior to discharge, the incision was inspected and noted to be clean, dry and intact. Dressing changes were done prior to the patient going home. LABORATORY ANALYSIS: Upon discharge, hemoglobin of 8.4, hematocrit 25.0. Chemistry panel did show iron deficiency anemia and was otherwise within normal limits. DISCHARGE MEDICATIONS: 1. [place] 5/325 mg. 2. Tramadol 50 mg. 3. Aspirin 325 mg. 4. Protonix 40 mg. 5. Additionally, the patient should take iron supplement and resume all of his normal home medications. DISCHARGE INSTRUCTIONS: The patient will be discharged home in stable condition. He is to resume a normal diet. He is weightbearing as tolerated on the right lower extremity. He will be discharged home on the medications noted above and is to resume all of his normal home medications. Additionally, the patient will begin home health physical therapy. The patient is to call the office or go to the emergency room for any concerns including increased redness , swelling, drainage or fever or any concern regarding the operation or site of incision. FOLLOWUP: The patient is to follow up in the office on 12/22/2016. Dictated By: HALINA GALAVIZ/MATT Conf#: [id number] [facility]#: [id number] MTDD
== END 2016-12-14 14:30 | disposition home health service (06) | DRG 470 ==
LOC: REC 05:30 → MS1 12:01
PROVIDERS: ADMIT Orthopaedic Surgery; ATTEND Orthopaedic Surgery
PROC: 0SR904Z Replacement of Right Hip Joint with Ceramic on Polyethylene Synthetic Substitute, Open Approach (ICD-10-PCS; principal; 2016-12-12 07:00)
DX: M16.11 Unilateral primary osteoarthritis, right hip (principal); D64.9 Anemia, unspecified; Z87.891 Personal history of nicotine dependence; F41.8 Other specified anxiety disorders; Z79.82 Long term (current) use of aspirin
CPT/HCPCS: 72170; 73530; 80048; 81003; 82728; 83540; 85014; 85018; 87081; 87086; 93971; 97110; 97116; 97162; 97166; 97530; C1776; C9290; J0171; J0690; J0697; J0735; J1100; J1170; J1644; J1885; J2250; J2274; J2405; J2710; J3010; J3370; J7120

== ENCOUNTER → 2016-12-22 | Outpatient (CLI) | payer BC ==
[~2016-12-22] MED LIST: ARIP5TAB7 PO; ASPI325T32 PO; CLON2TAB22 PO; DULO60CA6 PO; GABA400C PO; HYDR-3498 PO; PANT40TA4 PO; TRAM50TA2 PO
--- NOTE | 2016-12-22 12:18 | RADRPT ---
PROCEDURE: XR pelvis/right hip. CLINICAL INDICATION: Hip pain TECHNIQUE: AP pelvis/lateral right hip view performed. COMPARISON: 12/12/2016 FINDINGS: There is a right total hip replacement. There is no evidence of loosening of the prosthesis. No hard anthony failure is identified. There are skin ihsan lateral to the right hip. There is moderate to severe left hip osteoarthrosis. This is associated with joint space narrowing, subchondral sclerosis, subchondral cyst formation and osteophytosis. There is normal osseous minera lization. No fractures or osseous lesions are identified. The soft tissues are unremarkable. IMPRESSION: Right total hip replacement. Moderate to severe left hip osteoarthrosis. RPTAT: HGDB .Cristian Farrell MD, Date Time Electronically viewed and signed by .Cristian Farrell MD, on 12/22/2016 12:17 .B/
--- NOTE | 2016-12-22 12:19 | HKNOTE ---
DATE OF SERVICE: 12/22/2016 INTERVAL HISTORY: The patient presents today for his first postoperative evaluation. He is 10 days status post right anterior total hip arthroplasty. He is doing well overall. He denies any significant pain, but is having some swelling of his right lower extremity. He has been taking aspirin 320 mg twice daily for DVT prophylaxis. Additionally, he is taking pain medicine as needed. He is doing physical therapy with home health and is still ambulating with a front-wheeled walker. He presents today for his first postoperative evaluation. PHYSICAL EXAMINATION: On exam today, he is alert and oriented x4, and in no acute distress. He is ambulating with a front-wheeled walker. Exam of the incision demonstrates it to be clean, dry and intact. Sameer are in place. There is no erythema, warmth, pus or drainage noted. He does have 2+ pitting edema distally. There is no pain with passive range of motion of the right hip joint. Homans sign is negative. Compartments are otherwise soft. He is neurovascularly intact distally. IMAGING: X-rays of the right hip are obtained today and reviewed by me. They demonstrate good anatomic alignment, with no fractures or dislocations identified. ASSESSMENT: Ten days status post right anterior total hip arthroplasty. PLAN: The sameer were removed today and Steri-Strips were applied. Given the mild soft tissue swelling he has of his right lower extremity, we will obtain a venous Doppler to rule out DVT. In lieu of this being negative, we encouraged him to elevate his leg above the level of his heart to decrease the amount of the dependent swelling that has occurred postoperatively. He is also to continue taking aspirin 320 mg twice daily for DVT prophylaxis. We will follow up on his Doppler results today and let him know if there are any positive findings. Otherwise, we will see him back in 4 weeks for a repeat evaluation. Dictated By: HALINA CORTES for LYN GALAVIZ/MATT Conf#: [id number] DID#: [id number] MTDD
== END | disposition home or self-care (01) ==
LOC: HKI 09:21
PROVIDERS: ATTEND Orthopaedic Surgery
DX: Z47.1 Aftercare following joint replacement surgery (principal); Z96.641 Presence of right artificial hip joint
CPT/HCPCS: 73502

== ENCOUNTER → 2017-01-19 | Outpatient (CLI) | payer BC ==
--- NOTE | 2017-01-19 14:56 | RADRPT ---
PROCEDURE: XR Right hip and pelvis. CLINICAL INDICATION: Right hip pain. Pelvic pain. Postop. TECHNIQUE: Two views. Frontal pelvis and frontal right hip. COMPARISON: 12/22/2016. FINDINGS: There is no fracture or dislocation. The soft tissues are normal. There is a right hip total arthroplasty which appears satisfactory. There are moderate degenerative changes of the left hip with joint space narrowing and osteophytes. There is no lytic or blastic lesion. The upper pelvis is not completely included on the image. IMPRESSION: 1. Satisfactory postoperative appearance of the right hip. 2. Moderate degenerative changes of the left hip. RPTAT: QQ .Edmar Layton MD, MD Date Time Electronically viewed and signed by .Edmar Layton MD, MD on 01/19/2017 14:56 .R/
== END | disposition home or self-care (01) ==
LOC: HKI 14:08
PROVIDERS: ATTEND Orthopaedic Surgery
DX: Z47.1 Aftercare following joint replacement surgery (principal); M25.551 Pain in right hip; R10.2 Pelvic and perineal pain; Z96.641 Presence of right artificial hip joint
CPT/HCPCS: 73502

== ENCOUNTER → 2017-03-09 | Outpatient (CLI) | payer BC ==
--- NOTE | 2017-03-09 16:24 | RADRPT ---
PROCEDURE: XR Right hip and pelvis. CLINICAL INDICATION: Right hip pain. Pelvic pain. Postop. TECHNIQUE: Three views. Frontal pelvis. Frontal and lateral right hip. COMPARISON: 01/19/2017. FINDINGS: There is no fracture or dislocation. The soft tissues are normal. There is a right hip total arthroplasty which appears satisfactory. There are moderate degenerative changes of the left hip with joint space narrowing and osteophytes. There is no lytic or blastic lesion. The upper pelvis is not completely included on the image. IMPRESSION: 1. Satisfactory postoperative appearance of the right hip. 2. Moderate degenerative changes of the left hip. 3. No change from 01/19/2017. RPTAT: QQ .Edmar Layton MD, MD Date Time Electronically viewed and signed by .Edmar Layton MD, on 03/09/2017 16:23 .R/
== END | disposition home or self-care (01) ==
LOC: HKI 14:20
PROVIDERS: ATTEND Orthopaedic Surgery
DX: Z09 Encounter for follow-up examination after completed treatment for conditions other than malignant neoplasm (principal); Z96.641 Presence of right artificial hip joint; M16.11 Unilateral primary osteoarthritis, right hip; F41.9 Anxiety disorder, unspecified; F32.9 Major depressive disorder, single episode, unspecified; E66.01 Morbid (severe) obesity due to excess calories
CPT/HCPCS: 73502; G0463